=== PATIENT | male | born 1965 | race Caucasian/White ===

== ENCOUNTER → 2018-11-08 | Outpatient (CLI) | payer OTHER ==
[2018-11-08 10:40] LABS: HCT 44.7 % (39.0-53.0); HGB 14.4 gm/dL (13.0-17.5); MCHC 32.1 g/dL (31.0-37.0); MCV 90.2 fL (80.0-100.0); Mean Platelet Volume 7.3; Platelet Count 284 k/uL (150-450); RBC 4.96 m/uL (4.30-5.90); RDW 13.2 % (11.5-15.5); WBC 5.7 k/uL (3.8-10.6)
[2018-11-08 10:56] LABS: African American GFR (CKD) >90 (>60 ml/min/1.73 sqM); Anion Gap 6 mmol/L; Blood Urea Nitrogen 21 mg/dL (9-20); Carbon Dioxide 29 mmol/L (22-30); Chloride 107 mmol/L (98-107); Potassium 4.5 mmol/L (3.5-5.1); Sodium 142 mmol/L (137-145)
== END | disposition home or self-care (01) ==
LOC: LABPAT 10:12
PROVIDERS: ATTEND Internal Medicine Interventional Cardiology
DX: Z01.812 Encounter for preprocedural laboratory examination (principal); I50.22 Chronic systolic (congestive) heart failure
CPT/HCPCS: 36415; 80051; 82565; 84520; 85027

== ENCOUNTER 2018-11-13 06:12 | Day surgery (SDC) | payer OTHER ==
[2018-11-08 13:18] VITALS: BMI 35.9
[2018-11-13] MEDS ORDERED: ATORVASTATIN 80 MG TAB PO STA (06:40)
[2018-11-13] MEDS ORDERED: ALPRAZolam 0.25 MG TAB PO PRN (06:40)
[2018-11-13] MEDS ORDERED: SODIUM CHLORIDE 0.9% 1,000 ML in EMPTY BAG 1 BAG IV ONE (06:40)
[2018-11-13] MEDS ORDERED: ASPIRIN 325 MG TAB PO STA (06:40)
[2018-11-13] MEDS ORDERED: ALPRAZolam 0.5 MG TAB PO PRN (06:40)
[2018-11-13] MEDS ORDERED: NITROGLYCERIN SL TABS 0.4 MG TAB SUBLINGUAL PRN (06:40)
[2018-11-13 07:09] VITALS: TEMP 98
[2018-11-13] MEDS ORDERED: HEPARIN SODIUM 1,000 UN/ML (10ML VL) ONE (07:35)
[2018-11-13] MEDS ORDERED: MIDAZOLAM (PF) 2 MG/2 ML VIAL IV ONE (08:02)
[2018-11-13] MEDS ORDERED: LIDOCAINE 1% INJ 10MG/ML (20 ML MDV) SQ ONE (08:05)
[2018-11-13] MEDS ORDERED: VERAPAMIL SYRINGE (5 MG/10 ML) INTRAARTER ONE (08:06)
[2018-11-13] MEDS ORDERED: HEPARIN SODIUM 1,000 UN/ML (10ML VL) IV ONE (08:06)
[2018-11-13] MEDS ORDERED: IOPAMIDOL-370 125ML BTL INJ ONE (08:15)
[2018-11-13] MEDS ORDERED: RX INFO: IV CONTRAST WAS GIVEN 1 EACH MISC MISCELLANE PRN (08:22)
--- NOTE | 2018-11-13 08:28 | P.CARDCATH ---
Date of Procedure: 11/13/18 Operative Findings: CARDIAC CATHETERIZATION PERFORMING PHYSICIAN: Manuel Kessler MD, RPVI PREPROCEDURE DIAGNOSES: #1 cardiomyopathy was EF of 40% of unknown etiology #2 shortness of breath with exertion concerning for angina #3 multiple risk factors for CAD including hypertension and dyslipidemia POSTPROCEDURE DIAGNOSES: #1 normal coronary angiogram #2 normal left ventricular end-diastolic pressure PROCEDURE PERFORMED: 1. Selective right and left coronary angiogram 2. Left heart catheterization APPROACH: Right radial artery PROCEDURE DESCRIPTION: After obtaining an informed consent and explaining the procedure benefits, risks, and complications, the patient was brought to cardiac mushroom laborer. Local anesthesia was performed using lidocaine subcutaneously. The right radial artery was cannulated using Seldinger technique, the guidewire passed easily, following that we advanced a 6-[place] sheath dilator assembly, the wire and dilator were removed and sheath was flushed. Following that, 2 mg of verapamil along with 3000 unit heparin were given. Selective right and left coronary angiogram using a 6-[place] JR4 and JL 3.5 catheters. Following that we did left heart catheterization using 6-[place] pigtail catheter. The procedure was completed there was no complication. SELECTIVE CORONARY ANGIOGRAM: The right coronary artery: Is a large caliber vessel and a dominant vessel. Its angiographically normal. Distally bifurcates into PDA and PLV branches and both appeared to be pepito ographically normal. Left main: Is angiographically normal. Bifurcates into the circumflex and LAD The left circumflex: Is a large caliber vessel and nondominant vessel. The proximal circumflex gives rises into the first OM branch which seems to be angiographically normal. The mid circumflex is angiographically normal and gives rises into second OM branch which seems to be angiographically normal and the circumflex continue after that in the AV groove and seems to be normal. The left anterior descending artery: Is angiographically normal.The midportion gives rise into a large diagonal br anch which seems to be angiographically normal. HEMODYNAMICS: The LVEDP was 12-16 mmHg was mild gradient across aortic valve VENTRICULOGRAPHY: Was not performed POSTPROCEDURE MANAGEMENT: #1 medical treatment #2 follow-up with the patient
[2018-11-13] MEDS ORDERED: SODIUM CHLORIDE 0.9% 1,000 ML IV SCH (08:30)
[2018-11-13 08:33] VITALS: RESP 18
[2018-11-13 10:16] VITALS: BP 123/69; PULSE 77
== END 2018-11-13 13:26 | disposition home or self-care (01) ==
LOC: CATHCVL 06:12
PROVIDERS: ATTEND Internal Medicine Interventional Cardiology
DX: R93.1 Abnormal findings on diagnostic imaging of heart and coronary circulation (principal); R06.02 Shortness of breath; I44.7 Left bundle-branch block, unspecified; E78.5 Hyperlipidemia, unspecified; E78.00 Pure hypercholesterolemia, unspecified; Z82.49 Family history of ischemic heart disease and other diseases of the circulatory system; I42.9 Cardiomyopathy, unspecified; Z79.899 Other long term (current) drug therapy
CPT/HCPCS: 93458; C1769; C1894; J2001; J1644; Q9967; J2250

== ENCOUNTER → 2020-03-25 | Outpatient (CLI) | payer OTHER ==
--- NOTE | 2020-03-25 15:07 | CT ---
EXAMINATION TYPE: CT angio chest DATE OF EXAM: 03/25/2020 2:48 PM COMPARISON: None. HISTORY: Thoracic aneurysm. CT DLP: 1232 mGycm Automated exposure control for dose reduction was used. CONTRAST: CTA scan of the thorax is performed without and with IV Contrast, patient injected with 100ml mL of I sovue 370, aneurysm protocol. 3D reconstructed images are created on an independent workstation and reviewed.. FINDINGS: LUNGS: The lungs are predominantly clear, there is no concerning parenchymal mass or nodule identifie d. Mild to moderate linear scarring and/or atelectasis in both lower lungs is present. There is no p leural effusion or pneumothorax seen. The tracheobronchial tree is patent. MEDIASTINUM: There is satisfactory enhancement of the central pulmonary arteries which are not dilate d. Pulsation artifact level of main pulmonary artery noted. Ascending aorta measures up to 3.6 cm at aortic root coronal image 20 series 11. There is four-vessel origin from aortic arch which is normal variant. There are no greater than 1 cm hilar or mediastinal lymph nodes. No cardiomegaly or perica rdial effusion is seen. OTHER: Mild diffuse fatty infiltration of liver. Occasional colonic diverticula. Occasional splenosis . IMPRESSION: Some ectasia of the ascending aorta up to 3.6 cm the level of the root. No greater than 4 .0 cm aneurysm.
== END | disposition home or self-care (01) ==
LOC: RADCTMAIN 14:03
PROVIDERS: ATTEND Internal Medicine Interventional Cardiology
DX: I77.810 Thoracic aortic ectasia (principal)
CPT/HCPCS: 71275; Q9967

== ENCOUNTER 2021-07-29 07:28 | Inpatient (IN) | payer OTHER ==
[2021-07-29] MEDS ORDERED: NITROGLYCERIN OINT 1 INCH/GM PACKET TOPICAL STA (07:57)
--- NOTE | 2021-07-29 07:59 | ED ---
General Adult HPI - General Chief complaint: Chest Pain Stated complaint: Chest pain Time Seen by Provider: 07/29/21 07:28 Source: patient, RN notes reviewed, old records reviewed Mode of arrival: ambulatory Limitations: no limitations - History of Present Illness Initial comments: This is a 56-year-old male who presents emergency department stating that he has a past medical history significant for nonischemic cardiomyopathy. Patient states ejection fraction of 35. Patient comes in today stating last night he started having chest pain he woke up this morning continued to have some chest pain so he decided come the emergency department to be evaluated. Patient states the chest pain currently is gone. Patient denies any radiation of the pain. Patient denies any difficulty breathing shortness of breath per patient denies any recent fever chills or cough per patient denies any diaphoretic episodes. Patient denies any nausea. Patient denies any abdominal pain. Patient denies headache patient denies lightheadedness dizziness or near-syn copal episode. Patient denies any swelling to the legs or calf tenderness. - Related Data Home Medications Medication Instructions Recorded Confirmed Omeprazole [PriLOSEC] 20 mg PO AC-BRKFST 10/14/14 11/13/18 Simvastatin [Zocor] 20 mg PO HS 10/14/14 11/13/18 Citalopram Hydrobromide 20 mg PO DAILY 11/08/18 11/13/18 LORazepam [Ativan] 2 mg PO HS 11/08/18 11/13/18 lisinopriL [Prinivil] 20 mg PO DAILY 11/08/18 11/13/18 Allergies Allergy/AdvReac Type Severity Reaction Status Date / Time No Known Allergies Allergy Verified 11/08/18 13:09 Review of Systems ROS Statement: Those systems with pertinent positive or pertinent negative responses have been documented in the HPI. ROS Other: All systems not noted in ROS Statement are negative. Past Medical History Past Medical History: GERD/Reflux, Hyperlipidemia, Hypertension, Pneumonia Additional Past Medical History / Comment(s): frequent diarrhea, cardiomyopathy History of Any Multi-Drug Resistant Organisms: None Reported Additional Past Surgical History / Comment(s): surgery for testicular torsion Past Anesthesia/Blood Transfusion Reactions: Motion Sickness Past Psychological History: No Psychological Hx Reported Smoking Status: Never smoker Past Alcohol Use History: None Reported Past Drug Use History: None Reported - Past Family History Mother Family Medical History: Cancer Brother(s) Family Medical History: Cancer General Exam - General Exam Comments Initial Comments: GENERAL: Patient is well-developed and well-nourished. Patient is nontoxic and well- hydrated and is in mild distress. ENT: Neck is soft and supple. No significant lymphadenopathy is noted. Oropharynx is clear. Moist mucous membranes. Neck has full range of motion without eliciting any pain. EYES: The sclera were anicteric and conjunctiva were pink and moist. Extraocular movements were intact and pupils were equal round and reactive to light. Eyelids were unremarkable. PULMONARY: Unlabored respirations. Good breath sounds bilaterally. No audible rales rhonchi or wheezing was noted. CARDIOVASCULAR: There is a regular rate and rhythm without any murmurs gallops or rubs. ABDOMEN: Soft and nontender with normal bowel sounds. SKIN: Skin is clear with no lesions or rashes and otherwise unremarkable. NEUROLOGIC: Patient is alert and oriented x3. Cranial nerves II through XII are grossly intact. Motor and sensory are also intact. Normal speech, volume and content. Symmetrical smile. MUSCULOSKELETAL: Normal extremities with adequate strength and full range of motion. No lower extremity swelling or edema. No calf tenderness. LYMPHATICS: No significant lymphadenopathy is noted PSYCHIATRIC: Normal psychiatric evaluation. Limitations: no limitations Course Vital Signs 07/29/21 07/29/21 07:38 08:07 Temperature 98.1 F 98.5 F Pulse Rate 71 65 Respiratory 18 12 Rate Blood Pressure 125/76 117/71 O2 Sat by Pulse 98 94 L Oximetry Medical Decision Making - Medical Decision Making EKG shows sinus rhythm with a left bundle branch block at 67 bpm MD interval 180 QRSs 150 QT intervals 4:30 QTC is 445. Chest x-ray shows no acute abnormality. Patient remained chest pain free throughout his ED stay. I spoke with Dr. Linn he agreed to admit the patient and the patient wrote admitting orders I consult to cardiology. - Lab Data Result diagrams: 07/29/21 08:01 07/29/21 08:01 Lab Results 07/29/21 07/29/21 07/29/21 Range/Units 08:01 08:01 08:01 WBC 7.7 (3.8-10.6) k/uL RBC 4.65 (4.30-5.90) m/uL Hgb 14.5 (13.0-17.5) gm/dL Hct 42.8 (39.0-53.0) % MCV 92.0 (80.0-100.0) fL MCH 31.2 (25.0-35.0) pg MCHC 33.9 (31.0-37.0) g/dL RDW 13.5 (11.5-15.5) % Plt Count 256 (150-450) k/uL MPV 8.0 Neutrophils % 67 % Lymphocytes % 23 % Monocytes % 6 % Eosinophils % 3 % Basophils % 1 % Neutrophils # 5.1 (1.3-7.7) k/uL Lymphocytes # 1.8 (1.0-4.8) k/uL Monocytes # 0.4 (0-1.0) k/uL Eosinophils # 0.2 (0-0.7) k/uL Basophils # 0.0 (0-0.2) k/uL PT 10.0 (9.0-12.0) sec INR 0.9 (<1.2) APTT 24.3 (22.0-30.0) sec Sodium 139 (137-145) mmol/L Potassium 3.9 (3.5-5.1) mmol/L Chloride 108 H (98-107) mmol/L Carbon Dioxide 27 (22-30) mmol/L Anion Gap 4 mmol/L BUN 19 (9-20) mg/dL Creatinine 0.94 (0.66-1.25) mg/dL Est GFR (CKD-EPI)AfAm >90 (>60 ml/min/1.73 sqM) Est GFR (CKD-EPI)NonAf >90 (>60 ml/min/1.73 sqM) Glucose 108 H (74-99) mg/dL Calcium 8.7 (8.4-10.2) mg/dL Magnesium 2.0 (1.6-2.3) mg/dL Total Bilirubin 0.5 (0.2-1.3) mg/dL AST 18 (17-59) U/L ALT 17 (4-49) U/L Alkaline Phosphatase 60 (38-126) U/L Troponin I (0.000-0.034) ng/mL Total Protein 6.9 (6.3-8.2) g/dL Albumin 3.8 (3.5-5.0) g/dL 03/03/22 Range/Units 08:01 WBC (3.8-10.6) k/uL RBC (4.30-5.90) m/uL Hgb (13.0-17.5) gm/dL Hct (39.0-53.0) % MCV (80.0-100.0) fL MCH (25.0-35.0) pg MCHC (31.0-37.0) g/dL RDW (11.5-15.5) % Plt Count (150-450) k/uL MPV Neutrophils % % Lymphocytes % % Monocytes % % Eosinophils % % Basophils % % Neutrophils # (1.3-7.7) k/uL Lymphocytes # (1.0-4.8) k/uL Monocytes # (0-1.0) k/uL Eosinophils # (0-0.7) k/uL Basophils # (0-0.2) k/uL PT (9.0-12.0) sec INR (<1.2) APTT (22.0-30.0) sec Sodium (137-145) mmol/L Potassium (3.5-5.1) mmol/L Chloride (98-107) mmol/L Carbon Dioxide (22-30) mmol/L Anion Gap mmol/L BUN (9-20) mg/dL Creatinine (0.66-1.25) mg/dL Est GFR (CKD-EPI)AfAm (>60 ml/min/1.73 sqM) Est GFR (CKD-EPI)NonAf (>60 ml/min/1.73 sqM) Glucose (74-99) mg/dL Calcium (8.4-10.2) mg/dL Magnesium (1.6-2.3) mg/dL Total Bilirubin (0.2-1.3) mg/dL AST (17-59) U/L ALT (4-49) U/L Alkaline Phosphatase (38-126) U/L Troponin I <0.012 (0.000-0.034) ng/mL Total Protein (6.3-8.2) g/dL Albumin (3.5-5.0) g/dL Disposition Clinical Impression: Unstable angina pectoris Disposition: ADMITTED IP TO THIS [facility] Referrals: Mari Jamil MD [Primary Care Provider] - 1-2 days Time of Disposition: 09:50
[2021-07-29 08:17] LABS: Basophils % (A) 1 %; Eosinophils # (A) 0.2 k/uL (0-0.7); Eosinophils % (A) 3 %; HCT 42.8 % (39.0-53.0); HGB 14.5 gm/dL (13.0-17.5); Lymphocytes # (A) 1.8 k/uL (1.0-4.8); Lymphocytes % (A) 23 %; MCH 31.2 pg (25.0-35.0); MCHC 33.9 g/dL (31.0-37.0); Monocytes # (A) 0.4 k/uL (0-1.0); Monocytes % (A) 6 %; Neutrophils # (A) 5.1 k/uL (1.3-7.7); Neutrophils % (A) 67 %; Platelet Count 256 k/uL (150-450); RBC 4.65 m/uL (4.30-5.90); RDW 13.5 % (11.5-15.5); WBC 7.7 k/uL (3.8-10.6)
[2021-07-29 08:27] LABS: INR 0.9 (<1.2); Partial Thromboplastin Time 24.3 sec (22.0-30.0)
[2021-07-29 08:33] LABS: ALT 17 U/L (4-49); AST 18 U/L (17-59); African American GFR (CKD) >90 (>60 ml/min/1.73 sqM); Albumin 3.8 g/dL (3.5-5.0); Alkaline Phosphatase 60 U/L (38-126); Anion Gap 4 mmol/L; Blood Urea Nitrogen 19 mg/dL (9-20); Calcium 8.7 mg/dL (8.4-10.2); Carbon Dioxide 27 mmol/L (22-30); Chloride 108 mmol/L (98-107); Glucose 108 mg/dL (74-99); Non-African American GFR(CKD) >90 (>60 ml/min/1.73 sqM); Potassium 3.9 mmol/L (3.5-5.1); Sodium 139 mmol/L (137-145); Total Bilirubin 0.5 mg/dL (0.2-1.3); Total Protein 6.9 g/dL (6.3-8.2)
--- NOTE | 2021-07-29 09:16 | XR ---
EXAMINATION TYPE: XR chest 2V DATE OF EXAM: 07/29/2021 COMPARISON: None INDICATION: Chest pain TECHNIQUE: Frontal and lateral views of the chest are obtained. FINDINGS: The heart size is normal. The pulmonary vasculature is normal. There is some mild streak atelectasis at the right base. Correlate for atelectasis. Mild nonspecific infiltrate at the left base is present. Correlate for subsegmental atelectasis.. IMPRESSION: 1. Mild bibasilar infiltrates suggestive for atelectasis. Follow-up can be performed.
[2021-07-29] MEDS ORDERED: NITROGLYCERIN SL TABS 0.4 MG TAB SUBLINGUAL PRN (09:50)
--- NOTE | 2021-07-29 11:21 | P.CRDCN ---
History of Present Illness Consult date: 07/29/21 History of present illness: This is a 56-year-old gentleman with history of known left bundle branch block and also nonischemic cardiomyopathy with an ejection fraction about 40% who is being followed by Dr. Weller, comes here with complaints of chest pain. Around 10:00 last night while watching TV, patient started feeling some tight feeling across the chest. Apparently lasted about 2 hours. Not associated with any nausea, vomiting, sweating or shortness of breath, no radiation. Patient should've a couple of aspirins with some relief. Patient however continued to have chest pain and came to the emergency room around 7:00 this morning. Still has some mild discomfort. He claims that when he tried to walk around, the tightness got worse. He EKG continued to show left bundle-branch block. Foster troponin values normal. No arrhythmias are detected. Chest x-ray within normal limits. D-dimer is not available at this time. Chest pain with atypical featu res. Patient had a normal cardiac catheterization 2019. We'll continue to monitor his cardiac enzymes. We'll get an echocardiogram. Depending upon the clinical course and findings on the above test, we'll make consider is a Lexiscan stress test or cardiac catheterization. Meanwhile continue with current medical therapy along with nitrates and aspirin and lipid-lowering agent Past Medical History Past Medical History: GERD/Reflux, Hyperlipidemia, Hypertension, Pneumonia Additional Past Medical History / Comment(s): Nonischemic cardiomyopathy, Atach, small hiatal hernia. History of Any Multi-Drug Resistant Organisms: None Reported Past Surgical History: Heart Catheterization Additional Past Surgical History / Comment(s): 2019 cardiac cath, surgery for testicular torsion, EGD, colonoscopy Past Anesthesia/Blood Transfusion Reactions: No Reported Reaction Smoking Status: Former smoker - Past Family History Father Family Medical History: Coronary Artery Disease (CAD) Additional Family Medical History / Comment(s): Father is living. He had CABG Mother Family Medical History: AFIB, Cancer, Coronary Artery Disease (CAD) Additional Family Medical History / Comment(s): Mother is living. She had breast cancer. She had a watchman's procedure then cardiac valve surgery. Brother(s) Family Medical History: Cancer Additional Family Medical History / Comment(s): Geoblastoma's in brain/. Medications and Allergies Home Medications Medication Instructions Recorded Confirmed Type Omeprazole [PriLOSEC] 20 mg PO HS 10/14/14 07/29/21 History Calcium Polycarbophil [Fibercon] 625 mg PO TID 07/29/21 07/29/21 History Citalopram Hydrobromide 40 mg PO HS 07/29/21 07/29/21 History LORazepam [Ativan] 2 mg PO HS 07/29/21 07/29/21 History Metoprolol Succinate (ER) [Toprol 50 mg PO HS 07/29/21 07/29/21 History Xl] Multivitamins, Thera [Multivitamin 1 tab PO HS 07/29/21 07/29/21 History (formulary)] Sacubitril/Valsartan [Entresto 24 1 tab PO BID 07/29/21 07/29/21 History mg-26 mg Tablet] Simvastatin [Zocor] 40 mg PO HS 07/29/21 07/29/21 History Spironolactone [Aldactone] 25 mg PO DAILY 07/29/21 07/29/21 History Allergies Allergy/AdvReac Type Severity Reaction Status Date / Time No Known Allergies Allergy Verified 07/29/21 10:22 Physical Exam Vitals: Vital Signs Temp Pulse Resp BP Pulse Ox 07/29/21 08:07 98.5 F 65 12 117/71 94 L 07/29/21 07:38 98.1 F 71 18 125/76 98 Intake and Output 07/28/21 07/29/21 07/29/21 22:59 06:59 14:59 Other: Weight 122.47 kg GENERAL EXAM: Patient is alert and oriented and doesn't appear to be in any acute distress HEENT: Normocephalic. Normal reaction of pupils, equal size, normal range of extraocular motion. No erythema or exudates in the throat. NECK: No masses, no nuchal rigidity. CHEST: No chest wall deformity. LUNGS: Equal air entry with no crackles or wheeze. HEART: S1 and S2 normal with no audible mumurs or gallops. Regular rhythm, femorals equal on both sides.. ABDOMEN: No hepatosplenomegaly, normal bowel sounds, no guarding or rigidity. SKIN: No rashes CENTRAL NERVOUS SYSTEM: No focal deficits. EXTREMITIES: No cyanosis, clubbing or edema. Results 07/29/21 08:01 07/29/21 08:01 Cardiac Enzymes 07/29/21 07/29/21 Range/Units 08:01 08:01 AST 18 (17-59) U/L Troponin I <0.012 (0.000-0.034) ng/mL Coagulation 07/29/21 Range/Units 08:01 PT 10.0 (9.0-12.0) sec APTT 24.3 (22.0-30.0) sec CBC 07/29/21 Range/Units 08:01 WBC 7.7 (3.8-10.6) k/uL RBC 4.65 (4.30-5.90) m/uL Hgb 14.5 (13.0-17.5) gm/dL Hct 42.8 (39.0-53.0) % Plt Count 256 (150-450) k/uL Comprehensive Metabolic Panel 07/29/21 Range/Units 08:01 Sodium 139 (137-145) mmol/L Potassium 3.9 (3.5-5.1) mmol/L Chloride 108 H (98-107) mmol/L Carbon Dioxide 27 (22-30) mmol/L BUN 19 (9-20) mg/dL Creatinine 0.94 (0.66-1.25) mg/dL Glucose 108 H (74-99) mg/dL Calcium 8.7 (8.4-10.2) mg/dL AST 18 (17-59) U/L ALT 17 (4-49) U/L Alkaline Phosphatase 60 (38-126) U/L Total Protein 6.9 (6.3-8.2) g/dL Albumin 3.8 (3.5-5.0) g/dL Current Medications Generic Name Dose Route Start Last Admin Trade Name Freq PRN Reason Stop Dose Admin Aspirin 325 mg 07/30/21 09:00 Aspirin 325 Mg Tab PO DAILY [facility] Atorvastatin Calcium 20 mg 07/29/21 21:00 Atorvastatin 20 Mg Tab PO HS [facility] Calcium Polycarbophil 625 mg 07/29/21 16:00 Calcium Polycarbophil 625 Mg Tab PO TID [facility] Citalopram Hydrobromide 40 mg 07/29/21 21:00 Citalopram Hydrobromide 20 Mg Tab PO HS [facility] Lorazepam 2 mg 07/29/21 21:00 Lorazepam 1 Mg Tab PO HS [facility] Metoprolol Succinate 50 mg 07/29/21 21:00 Metoprolol Succinate (Er) 50 Mg Tab.Er.24h PO HS [facility] Multivitamins 1 each 07/29/21 21:00 Multivitamins, Thera 1 Each Tab PO HS [facility] Nitroglycerin 0.4 mg 07/29/21 09:50 Nitroglycerin Sl Tabs 0.4 Mg Tab SUBLINGUAL Q5M PRN Chest Pain Nitroglycerin 1 inch 07/29/21 12:00 Nitroglycerin Oint 1 Inch/Gm Packet TOPICAL Q6HR [facility] Pantoprazole Sodium 40 mg 07/29/21 21:00 Pantoprazole 40 Mg Tablet PO HS [facility] Sacubitril/Valsartan 1 each 07/29/21 21:00 Sacubitril/Valsartan 24 Mg-26 Mg Tablet PO BID [facility] Spironolactone 25 mg 07/30/21 09:00 Spironolactone 25 Mg Tab PO DAILY [facility] Intake and Output 07/28/21 07/29/21 07/29/21 22:59 06:59 14:59 Other: Weight 122.47 kg Patient Weight 07/30/21 06:59 Weight 122.47 kg 07/29/21 08:01 07/29/21 08:01 EKG Interpretations (text) Sinus rhythm with left bundle-branch block Assessment and Plan (1) Chest pain Current Visit: Yes Status: Acute Code(s): R07.9 - CHEST PAIN, UNSPECIFIED SNOMED Code(s): 88505351 (2) Left bundle branch block Current Visit: Yes Status: Acute Code(s): I44.7 - LEFT BUNDLE-BRANCH BLOCK, UNSPECIFIED SNOMED Code(s): 24852252 (3) Nonischemic cardiomyopathy Current Visit: Yes Status: Acute Code(s): I42.8 - OTHER CARDIOMYOPATHIES SNOMED Code(s): 56030422 Plan: Continue current medical therapy along with nitrates and aspirin. Get an echocardiogram. Follow cardiac enzymes studies. Depending upon the clinical course and findings on the boat as, may consider either Lexiscan stress test or cardiac catheterization for definitive diagnosis. Keep patient nothing by mouth after midnight
[2021-07-29] MEDS: NITROGLYCERIN OINT 1 INCH/GM PACKET TOPICAL SCH ×2 (12:46→18:11)
--- NOTE | 2021-07-29 14:30 | P.HPIM ---
<Kun Carbone - Last Filed: 07/29/21 14:22> History of Present Illness H&P Date: 07/29/21 History of Presenting Illness: Patient is a very pleasant 56-year-old male with a past medical history of nonis chemic cardiomyopathy with previously reported EF of 40%, atrial tachycardia, hypertension, hyperlipidemia, and GERD. Patient presented to the emergency department secondary to reports of chest pain. Patient states chest pain began yesterday evening and described as a tightening and squeezing sensation to midsternal chest. He reports this pain came on while he was relaxing and watching television. He reports initially this pain was accompanied by diaphoresis and just feeling unwell. He denies any radiation of this pain and denied having any headache, lightheadedness, dizziness, palpitations, shortness of breath, nausea, or experiencing any numbness/tingling/weakness in his extremities. He reports the pain seemed to improve slightly after about 2 hours and he went to bed. Patient reports upon awakening this morning the tightening/squeezing sensation was still present in his midsternal chest so he came to the emergency department for evaluation. Patient currently reports pain has subsided since arrival to the emergency department, but states pain did return upon walking to the restroom and subsided shortly after returning to bed. EKG completed showing normal sinus rhythm at 67 bpm with a left bundle branch block, no previous EKGs available for comparison. Chest x-ray revealing mild bibasilar infiltrate suggestive of atelectasis. Labs obtained with CBC unremarkable, coags unremarkable, CMP unremarkable magnesium normal findings and troponin negative at less than 0.012. Patient admitted under our services with consultation to cardiology. Review of systems: Pertinent positives and negatives as discussed in HPI, a complete review of systems was performed and all other systems are negative. Physical exam: Vital signs reviewed and stable. General: Nontoxic, no distress and appears stated age. Derm: Skin warm and dry, normal coloration for ethnicity. Head: Atraumatic, normocephalic and symmetric. Eyes: EOMs intact, no lid lag, and anicteric sclera Mouth: no lip lesions, mucus membranes moist Cardiovascular: regular rate and rhythm with normal S1S2, no murmur, positive posterior tibial pulses bilaterally, and cap refill < 2 seconds. Lungs: Respirations even, regular, and unlabored on room air. Lungs CTA bilaterally, no rhonchi, no rales, no wheezing, and no accessory muscle usage. Abdominal: soft, nontender to palpation, no guarding, no appreciable organomegaly Ext: ROM intact. No gross muscle atrophy, no edema, no contractures Neuro: Speech clear, face symmetrical and CN II-XII grossly intact with no noted focal neuro deficits Psych: Alert and oriented to person, place, time, and situation. Appropriate and pleasant affect. Assessment and Plan of Care: Chest pain, rule out acute coronary syndrome Nonischemic cardiomyopathy with previously known EF of 40% History of atrial tachycardia Hypertension Hyperlipidemia -Cardiology consult -Telemetry monitoring -Trend troponins -Echocardiogram -Cardiac diet, NPO after midnight for possible stress test pending cardiology evaluation -Continue daily Aspirin, atorvastatin, and metoprolol, Entresto, and Aldactone -Lipid profile and Hgb A1c with a.m. labs. The patient is admitted with an anticipated less than 2 midnight stay for evaluation of chest pain. CODE STATUS: Full code DVT prophylaxis: Heparin Discussed with: Patient, RN, and patient's Anticipated discharge date: 1-[address]: Home A total of 45 minutes was spent on the care of this complex patient more than 50% of the time was spent in counseling and care coordination. Past Medical History Past Medical History: GERD/Reflux, Hyperlipidemia, Hypertension, Pneumonia Additional Past Medical History / Comment(s): frequent diarrhea, cardiomyopathy History of Any Multi-Drug Resistant Organisms: None Reported Additional Past Surgical History / Comment(s): surgery for testicular torsion Past Anesthesia/Blood Transfusion Reactions: Motion Sickness Past Psychological History: No Psychological Hx Reported Smoking Status: Never smoker Past Alcohol Use History: None Reported Past Drug Use History: None Reported - Past Family History Mother Family Medical History: Cancer Brother(s) Family Medical History: Cancer Father Family Medical History: Coronary Artery Disease (CAD) Additional Family Medical History / Comment(s): Father is living. He had CABG Medications and Allergies Home Medications Medication Instructions Recorded Confirmed Type Omeprazole [PriLOSEC] 20 mg PO HS 10/14/14 07/29/21 History Calcium Polycarbophil [Fibercon] 625 mg PO TID 07/29/21 07/29/21 History Citalopram Hydrobromide 40 mg PO HS 07/29/21 07/29/21 History LORazepam [Ativan] 2 mg PO HS 07/29/21 07/29/21 History Metoprolol Succinate (ER) [Toprol 50 mg PO HS 07/29/21 07/29/21 History Xl] Multivitamins, Thera [Multivitamin 1 tab PO HS 07/29/21 07/29/21 History (formulary)] Sacubitril/Valsartan [Entresto 24 1 tab PO BID 07/29/21 07/29/21 History mg-26 mg Tablet] Simvastatin [Zocor] 40 mg PO HS 07/29/21 07/29/21 History Spironolactone [Aldactone] 25 mg PO DAILY 07/29/21 07/29/21 History Allergies Allergy/AdvReac Type Severity Reaction Status Date / Time No Known Allergies Allergy Verified 07/29/21 10:22 Physical Exam Vitals: Vital Signs Temp Pulse Resp BP Pulse Ox 07/29/21 08:07 98.5 F 65 12 117/71 94 L 07/29/21 07:38 98.1 F 71 18 125/76 98 Intake and Output 07/28/21 07/29/21 07/29/21 22:59 06:59 14:59 Other: Weight 122.47 kg Results CBC & Chem 7: 07/29/21 08:01 07/29/21 08:01 Labs: Abnormal Lab Results - Last 24 Hours (Table) 07/29/21 Range/Units 08:01 Chloride 108 H (98-107) mmol/L Glucose 108 H (74-99) mg/dL <German Perez - Last Filed: 07/29/21 17:19> History of Present Illness I reviewed the documentation as provided by the LAKESHA above, who is the original author of this note. I agree with the documented assessment and plan, with the following changes: None Physical Exam Osteopathic Statement: *. No significant issues noted on an osteopathic structural exam other than those noted in the History and Physical/Consult. Vitals: Vital Signs Temp Pulse Pulse Resp BP BP Pulse Ox 07/29/21 14:50 98.3 F 80 16 117/71 94 L 07/29/21 11:55 98.5 F 67 16 117/72 98 07/29/21 08:07 98.5 F 65 12 117/71 94 L 07/29/21 07:38 98.1 F 71 18 125/76 98 Intake and Output 07/29/21 07/29/21 07/29/21 06:59 14:59 22:59 Other: # Voids 1 Weight 122.47 kg Results CBC & Chem 7: 07/29/21 08:01 07/29/21 08:01 Labs: Abnormal Lab Results - Last 24 Hours (Table) 07/29/21 Range/Units 08:01 Chloride 108 H (98-107) mmol/L Glucose 108 H (74-99) mg/dL
[2021-07-29] MEDS: ACETAMINOPHEN TAB 325 MG TAB PO PRN (16:38)
[2021-07-29] MEDS: HEPARIN SODIUM,PORCINE/PF 5,000 UNIT/0.5 ML SYRINGE SQ SCH ×2 (16:40→21:10)
[2021-07-29] MEDS: SACUBITRIL/VALSARTAN 24 MG-26 MG TABLET PO SCH (21:10)
[2021-07-29] MEDS: LORazepam 1 MG TAB PO SCH (21:11)
[2021-07-29] MEDS: MULTIVITAMINS, THERA 1 EACH TAB PO SCH (21:11)
[2021-07-29] MEDS: PANTOPRAZOLE 40 MG TABLET PO SCH (21:11)
[2021-07-29] MEDS: ATORVASTATIN 20 MG TAB PO SCH (21:11)
[2021-07-29] MEDS: METOPROLOL SUCCINATE (ER) 50 MG TAB.ER.24H PO SCH (21:11)
[2021-07-29] MEDS: CITALOPRAM HYDROBROMIDE 20 MG TAB PO SCH (21:11)
[2021-07-30] MEDS: NITROGLYCERIN OINT 1 INCH/GM PACKET TOPICAL SCH ×5 (05:24→20:29)
[2021-07-30] MEDS ORDERED: HEPARIN SODIUM,PORCINE 2,500 UNIT in SODIUM CHLORIDE 0.9% 250 ML IRRIGATION PRN (07:00)
[2021-07-30] MEDS ORDERED: HEPARIN SODIUM,PORCINE 10,000 UNIT in SODIUM CHLORIDE 0.9% 1,000 ML IRRIGATION PRN (07:00)
[2021-07-30] MEDS ORDERED: CAFFEINE CITRATE 60 MG/3 ML VIAL IV PRN (08:58)
[2021-07-30] MEDS ORDERED: REGADENOSON 0.4 MG/5 ML SYRINGE IV PRN (08:58)
[2021-07-30] MEDS ORDERED: AMINOPHYLLINE 500 MG/20 ML VIAL IV PRN (08:58)
[2021-07-30] MEDS ORDERED: ASPIRIN 325 MG TAB PO SCH (09:00)
--- NOTE | 2021-07-30 09:00 | ECHOF ---
Referral Reason:chest pain, hx of nonischemic cardiomyopathy MEASUREMENTS -------- HEIGHT: 180.3 cm WEIGHT: 122.5 kg BP: 117/71 RVIDd: 3.0 cm (< 3.3) IVSd: 1.1 cm (0.6 - 1.1) LVIDd: 4.3 cm (3.9 - 5.3) LVPWd: 1.1 cm (0.6 - 1.1) IVSs: 1.1 cm LVIDs: 3.6 cm LVPWs: 1.7 cm LA Diam: 3.2 cm (2.7 - 3.8) LAESV Index (A-L): 15.54 ml/m Ao Diam: 3.5 cm (2.0 - 3.7) AV Cusp: 2.5 cm (1.5 - 2.6) MV EXCURSION: 18.395 mm (> 18.000) MV EF SLOPE: 89 mm/s (70 - 150) EPSS: 0.8 cm MV E Augusto: 0.78 m/s MV DecT: 249 ms MV A Augusto: 0.82 m/s MV E/A Ratio: 0.95 RAP: 5.00 mmHg RVSP: 26.73 mmHg FINDINGS -------- Sinus rhythm. This was a technically adequate study. The left ventricular size is normal. There is borderline concentric left ventricular hypertrophy. Overall left ventricular systolic function is normal with, an EF between 55 - 60 %. Septal wall mo tion is delayed, and consistent with conduction delay/bundle branch block. The right ventricle is normal in size. Normal LA size by volume 22+/-6 ml/m2. The right atrium is normal in size. Interatrial and interventricular septum intact. The aortic valve is trileaflet, and appears structurally normal. No aortic stenosis or regurgitation. There is trace to mild mitral regurgitation. Mild tricuspid regurgitation present. Right ventricular systolic pressure is normal at < 35 mmHg. Trace/mild (physiologic) pulmonic regurgitation. The aortic root size is normal. Normal inferior vena cava with normal inspiratory collapse consistent with estimated right atrial pre ssure of 5 mmHg. There is no pericardial effusion. CONCLUSIONS -------- 1. The left ventricular size is normal. 2. There is borderline concentric left ventricular hypertrophy. 3. Overall left ventricular systolic function is normal with, an EF between 55 - 60 %. 4. Septal wall motion is delayed, and consistent with conduction delay/bundle branch block. 5. There is trace to mild mitral regurgitation. 6. Mild tricuspid regurgitation present. 7. Trace/mild (physiologic) pulmonic regurgitation. 8. There is no pericardial effusion. [employer]: Jenny Tilley RDCS
[2021-07-30] MEDS: ACETAMINOPHEN TAB 325 MG TAB PO PRN ×2 (09:11)
[2021-07-30] MEDS: ASPIRIN 81 MG PO SCH ×2 (09:13→13:10)
[2021-07-30] MEDS: SACUBITRIL/VALSARTAN 24 MG-26 MG TABLET PO SCH ×2 (09:13→20:28)
[2021-07-30] MEDS: HEPARIN SODIUM,PORCINE/PF 5,000 UNIT/0.5 ML SYRINGE SQ SCH ×3 (09:14→20:29)
[2021-07-30] MEDS: SPIRONOLACTONE 25 MG TAB PO SCH (09:14)
--- NOTE | 2021-07-30 10:11 | P.PN ---
Subjective This is a pleasant 56-year-old male past medical history significant for nonischemic cardiomyopathy with improved EF, hypertension, dyslipidemia, obe sity, chronic heart failure with reduced ejection fraction, paroxysmal atrial tachycardia. He follows in the office with Dr. Kessler. We have been asked to see in consultation for chest pain. Patient presents to the emergency department with chest pain. EKG revealed sinus rhythm, left bundle branch block, heart rate 67, troponins were negative 3. Patient denies any further chest pain. He denies any shortness of breath, palpitations, lightheadedness or dizziness. Telemetry reviewed patient is in sinus mechanism, heart rate in the 60s70s. His vital signs are stable DIAGNOSTICS: Cardiac catheterization in 2019 revealed normal coronary arteries Echocardiogram 05/2020 revealed an EF of 40%, mild TR, mild MR Echocardiogram this admission revealed an EF of 5560 percent, septal wall motion is delayed, consistent with conduction delay/bundle branch block, trace to mild mitral regurgitation, mild tricuspid regurgitation PHYSICAL EXAMINATION Vitals reviewed CONSTITUTIONAL: No apparent distress. HEENT: Neck supple No JVD. CHEST EXAMINATION: Lungs are clear to auscultation. No chest wall tenderness is noted on palpation or with deep breathing. HEART EXAMINATION: Regular rate and rhythm. S1, S2 heard. No murmurs, gallops or rub. ABDOMEN: Soft, nontender. Positive bowel sounds. EXTREMITIES: 2+ peripheral pulses, no lower extremity edema and no calf tenderness. NEUROLOGIC EXAMINATION: Patient is awake, alert and oriented x3. ASSESSMENT Chest pain acute coronary syndrome has been ruled out History of Nonischemic cardiomyopathy with improved EF Hypertension Dyslipidemia Obesity Chronic heart failure with reduced ejection fraction History of paroxysmal atrial tachycardia PLAN Perform Lexiscan stress test to assess for stress induced cardiac ischemia. If abnormal will consider coronary angiography. The stress test is negative okay to discharge from cardiology perspective. Patient may follow-up in the office with Dr. Kessler Nurse practitioner note has been reviewed by physician. Signing provider agrees with the documented findings, assessment, and plan of care. Objective - Vital Signs Vital signs: Vital Signs Temp 98.5 F 07/29/21 11:55 Pulse 67 07/29/21 11:55 Resp 16 07/29/21 11:55 BP 117/72 07/29/21 11:55 Pulse Ox 98 07/29/21 11:55 Intake & Output 07/28/21 07/29/2122 18:59 06:59 18:59 Weight 122.47 kg - Labs CBC & Chem 7: 07/29/21 08:01 07/29/21 08:01 Labs: Abnormal Lab Results - Last 24 Hours (Table) 07/29/21 Range/Units 08:01 Chloride 108 H (98-107) mmol/L Glucose 108 H (74-99) mg/dL
--- NOTE | 2021-07-30 11:05 | P.STRESS ---
- Stress Test Note Stress Test Results/Findings: Exam Performed: NM stress lexiscan cardiolite Exam Date: 07/30/21 Reason for Exam: CP Height: 5 ft 11 in Weight: 122.47 kg Protocol: LEXISCAN CARDIOLITE Stage: NA Duration of Exercise: NA Resting Heart Rate: 73 Resting Blood Pressure: 131/65 Maximum Achieved Heart Rate: 94 Maximum Achieved Blood Pressure: 131/65 85% PMHR: 139 100% PMHR: 164 METS: NA Technologist Comment: Stress Test Results/Findings: This is a 57-year-old gentleman with history of hypertension, hypercholesteremia, and family history of ischemic heart disease was admitted to the hospital with complaints of chest pain. His cardiac enzymes are negative. EKG showed left bundle-branch block pattern. Stress data: Baseline EKG showed sinus rhythm with left bundle-branch block pattern. Blood pressure at rest is 130/65, pulse rate of 73. History and was of Lexiscan was infused. EKGs taken during or after infusion did not reveal any significant changes from baseline. Final impression: #1. Nondiagnostic legs scan stress test #2. Report on the nuclear images to be given by the radiologist.
[2021-07-30 11:08] LABS: ALT 14 U/L (10-49); AST 9 U/L (14-35); African American GFR (CKD) 97.1 (60.0-200.0); Albumin/Globulin Ratio 1.67 (1.60-3.17); Alkaline Phosphatase 66 U/L (41-126); Blood Urea Nitrogen 15.3 mg/dL (9.0-27.0); Calcium 9.3 mg/dL (8.7-10.3); Carbon Dioxide 23.8 mmol/L (20.0-27.5); Chloride 102 mmol/L (96-109); Chol/HDL Ratio 3.73 Ratio; Globulin 2.4 g/dL (1.6-3.3); Glucose 117 mg/dL (70-110); LDL Cholesterol,Calculated 110.8 mg/dL (0.0-131.0); Non-African American GFR(CKD) 83.8 (60.0-200.0); Potassium 4.4 mmol/L (3.5-5.5); Sodium 138 mmol/L (135-145); Total Protein 6.4 g/dL (6.2-8.2); VLDL Calculation 14.38 mg/dL (5.00-40.00)
[2021-07-30 11:16] LABS: HGB 12.8 g/dL (13.0-17.0); MCH 30.2 pg (27.0-32.0); MCHC 32.8 g/dL (32.0-37.0); Mean Platelet Volume 11.2 fL (9.5-12.2); NRBC Per 100 WBC 0 /100 WBCS (0.0-0.0); Platelet Count 253 X 10*3/uL (140-440); RBC 4.24 X 10*6/uL (4.40-5.60); RDW 13.3 % (11.5-14.5); WBC 9.16 X 10*3/uL (4.50-10.00)
--- NOTE | 2021-07-30 11:38 | NM ---
EXAMINATION TYPE: NM stress lexiscan cardiolite DATE OF EXAM: 07/30/2021 COMPARISON: NONE HISTORY: Chest pain TECHNIQUE: After the intravenous administration of 9.68 mCi Tc 99m Sestamibi - Cardiolite resting SP ECT images acquired 55 minutes post injection. The patient received 0.4mg Lexiscan, 24.3 mCi Tc 99m Sestamibi - Stress images obtained [address] injection FINDINGS: Review of stress and rest SPECT images demonstrates decreased perfusion on stress images involving th e inferior cardiac apex as well as the lateral wall. Correlate for stress-induced ischemia. Gated kenneth lysis shows normal wall motion with an estimated left ventricular ejection fraction of 53 %. IMPRESSION: Correlate for stress-induced ischemia as noted above.
[2021-07-30] MEDS ORDERED: SODIUM CHLORIDE 0.9% 1,000 ML in EMPTY BAG 1 BAG IV ONE (12:22)
[2021-07-30] MEDS ORDERED: SODIUM CHLORIDE 0.9% 1,000 ML IV ONE (13:11)
--- NOTE | 2021-07-30 13:44 | P.PN ---
<Kun Carbone - Last Filed: 07/30/21 13:36> Subjective Progress Note Date: 07/30/21 History of Presenting Illness: Patient is a very pleasant 56-year-old male with a past medical history of nonischemic cardiomyopathy with previously reported EF of 40%, atrial tachycardia, hypertension, hyperlipidemia, and GERD. Patient presented to the emergency department secondary to reports of chest pain. Patient states chest pain began yesterday evening and described as a tightening and squeezing sensation to midsternal chest. He reports this pain came on while he was relaxing and watching television. He reports initially this pain was accompanied by diaphoresis and just feeling unwell. He denies any radiation of this pain and denied having any headache, lightheadedness, dizziness, palpitations, shortness of breath, nausea, or experiencing any numbness/tingling/weakness in his extremities. He reports the pain seemed to improve slightly after about 2 hours and he went to bed. Patient reports upon awakening this morning the tightening/squeezing sensation was still present in his midsternal chest so he came to the emergency department for evaluation. Patient currently reports pain has subsided since arrival to the emergency department, but states pain did return upon walking to the restroom and subsided shortly after returning to bed. EKG completed showing normal sinus rhythm at 67 bpm with a left bundle branch block, no previous EKGs available for comparison. Chest x-ray revealing mild bibasilar infiltrate suggestive of atelectasis. Labs obtained with CBC unremarkable, coags unremarkable, CMP unremarkable, magnesium normal findings and troponin negative at less than 0.012. Patient admitted under our services with consultation to cardiology. Physical exam: Patient seen and fully evaluated at the bedside. He reports continued persistent discomfort to midsternal chest, but does report that it has improved when compared to previous pain felt upon arrival. Patient denies having any headache, lightheadedness, dizziness, palpitations, shortness of breath, nausea, or experiencing any numbness/tingling/weakness in his extremities. Troponins were trended throughout the night and remained negative. Cardiology to complete Lexiscan stress test this morning. Vital signs reviewed and stable. General: Nontoxic, no distress and appears stated age. Derm: Skin warm and dry, normal coloration for ethnicity. Head: Atraumatic, normocephalic and symmetric. Eyes: EOMs intact, no lid lag, and anicteric sclera Mouth: no lip lesions, mucus membranes moist Cardiovascular: regular rate and rhythm with normal S1S2, no murmur, positive posterior tibial pulses bilaterally, and cap refill < 2 seconds. Lungs: Respirations even, regular, and unlabored on room air. Lungs CTA bilaterally, no rhonchi, no rales, no wheezing, and no accessory muscle usage. Abdominal: soft, nontender to palpation, no guarding, no appreciable organomegaly Ext: ROM intact. No gross muscle atrophy, no edema, no contractures Neuro: Speech clear, face symmetrical and CN II-XII grossly intact with no noted focal neuro deficits Psych: Alert and oriented to person, place, time, and situation. Appropriate and pleasant affect. Assessment and Plan of Care: Chest pain, rule out acute coronary syndrome Nonischemic cardiomyopathy with previously known EF of 40%, repeat echocardiogram showing ejection fraction improved to 55-60% History of atrial tachycardia Left bundle-branch block (previously known per patient, no previous EKGs available for comparison at this time) Hypertension Hyperlipidemia -Cardiology following, taking patient for Lexiscan stress test this morning. -Telemetry monitoring -Troponins negative -Echocardiogram revealed improvement of the EF up to 55-60% with septal wall motion Lainey meant and consistent with conduction delay/bundle branch block. -Continue daily Aspirin, atorvastatin, and metoprolol, Entresto, and Aldactone -Lipid profile unremarkable. CODE STATUS: Full code DVT prophylaxis: Heparin Discussed with: Patient, RN, and patient's Anticipated discharge date: 1-[address]: Home A total of 45 minutes was spent on the care of this complex patient more than 50% of the time was spent in counseling and care coordination. Objective - Vital Signs Vital signs: Vital Signs Temp 98.2 F 07/30/21 07:52 Pulse 76 07/30/21 09:09 Resp 18 07/30/21 07:52 BP 115/75 07/30/21 09:09 Pulse Ox 92 L 07/30/21 07:00 Intake & Output 07/29/21 07/30/21 07/30/21 18:59 06:59 18:59 Weight 122.47 kg Other: # Voids 1 1 # Bowel Movements 1 - Labs CBC & Chem 7: 07/30/21 06:47 07/30/21 06:47 <German Perez - Last Filed: 07/30/21 16:01> Subjective I reviewed the documentation as provided by the LAKESHA above, who is the original author of this note. I agree with the documented assessment and plan, with the following changes: None Objective - Vital Signs Vital signs: Vital Signs Temp 98.0 F 07/30/21 14:11 Pulse 71 07/30/21 14:11 Resp 16 07/30/21 14:11 BP 107/70 07/30/21 14:11 Pulse Ox 93 L 07/30/21 14:11 Intake & Output 07/29/21 07/30/21 07/30/21 18:59 06:59 18:59 Intake Total 125 Balance 125 Weight 122.47 kg 122.47 kg Intake: IV 125 Other: Voiding Method Toilet # Voids 1 1 # Bowel Movements 1 - Labs CBC & Chem 7: 07/30/21 06:47 07/30/21 06:47 Labs: Abnormal Lab Results - Last 24 Hours (Table) 07/30/21 07/30/21 Range/Units 06:47 06:47 RBC 4.24 L (4.40-5.60) X 10*6/uL Hgb 12.8 L (13.0-17.0) g/dL Hct 39.0 L (39.6-50.0) % Glucose 117 H (70-110) mg/dL AST 9 L (14-35) U/L
[2021-07-30 14:12] VITALS: RESP 16
[2021-07-30] MEDS ORDERED: HEPARIN SODIUM 1,000 UN/ML (10ML VL) ONE (16:20)
[2021-07-30] MEDS ORDERED: LIDOCAINE 1% INJ 10MG/ML (20 ML MDV) ONE (16:20)
[2021-07-30] MEDS ORDERED: VERAPAMIL 2.5 MG/ML 2 ML AMP ONE (16:20)
[2021-07-30] MEDS ORDERED: fentaNYL (PF) 50 MCG/ML 2 ML AMP ONE (16:38)
[2021-07-30] MEDS ORDERED: MIDAZOLAM 2 MG/2 ML VIAL IV ONE (17:22)
[2021-07-30] MEDS ORDERED: fentaNYL (PF) 50 MCG/ML 2 ML AMP IV ONE (17:25)
[2021-07-30] MEDS ORDERED: LIDOCAINE 1% INJ 10MG/ML (20 ML MDV) SQ ONE (17:26)
[2021-07-30] MEDS ORDERED: VERAPAMIL SYRINGE (5 MG/10 ML) INTRAARTER ONE ×2 (17:27→17:38)
[2021-07-30] MEDS ORDERED: HEPARIN SODIUM 1,000 UN/ML (10ML VL) IV ONE (17:29)
[2021-07-30] MEDS ORDERED: IOPAMIDOL-370 125ML BTL INJ ONE (17:40)
[2021-07-30] MEDS ORDERED: RX INFO: IV CONTRAST WAS GIVEN 1 EACH MISC MISCELLANE PRN (17:43)
[2021-07-30] MEDS ORDERED: SODIUM CHLORIDE 0.9% 1,000 ML IV SCH (17:45)
--- NOTE | 2021-07-30 17:46 | P.PCN ---
Date of Procedure: 07/30/21 Operative Findings: CARDIAC CATHETERIZATION PERFORMING PHYSICIAN: Manuel Kessler MD, RPVI PROCEDURE PERFORMED: 1. Selective right and left coronary angiogram 2. Left heart catheterization INDICATION: Chest discomfort in this 56-year-old gentleman who presented to the hospital and was ruled out for acute coronary syndrome. He underwent myocardial perfusion imaging stress is and that revealed reversibility. In the light of.heart catheterization was advised COMPLICATION: None APPROACH: Right radial artery LEVEL OF SEDATION: Moderate with a sedation length of 13 minutes PROCEDURE DESCRIPTION: After obtaining an informed consent, the patient was brought to cardiac agricultural labor camp manager. Local anesthesia was performed using lidocaine subcutaneously. The right radial artery was cannulated using Seldinger technique, the guidewire passed easily, following that we advanced a 5-Croatian sheath dilator assembly, the wire and dilator were removed and sheath was flushed. Following that, 2 mg of verapamil along with 5000 unit heparin were given. Selective right and left coronary angiogram using a 6-Croatian JR4 and JL 3.5 catheters. Following that we did left heart catheterization using 6-Croatian pigtail catheter. The procedure was completed there was no complication. SELECTIVE CORONARY ANGIOGRAM: The right coronary artery: Is a large caliber vessel and a dominant vessel. The RCA is angiographically normal. Distally bifurcates into PDA and PLV branches both appears to be angiographically normal Left main: Is a large caliber vessel. Its angiographically normal. Bifurcates into LCx and LAD The left circumflex: Is a large caliber vessel nondominant vessel. The left circumflex system is normal and gives rises into 3 obtuse marginal branches and all appeared to be angiographically normal. The left anterior descending artery: Is a large caliber vessel. Its angiographically normal. It gives rises into a large diagonal branch which seems to be angiographically normal HEMODYNAMICS: And the LVEDP was about 10 mmHg without significant gradient across aortic valve CONCLUSION: 1. Normal coronary angiogram 2. Normal left-sided filling pressure POSTPROCEDURE MANAGEMENT: Medical treatment and follow-up with the patient
[2021-07-30] MEDS: MULTIVITAMINS, THERA 1 EACH TAB PO SCH (20:28)
[2021-07-30] MEDS: LORazepam 1 MG TAB PO SCH (20:28)
[2021-07-30] MEDS: ATORVASTATIN 20 MG TAB PO SCH (20:28)
[2021-07-30] MEDS: METOPROLOL SUCCINATE (ER) 50 MG TAB.ER.24H PO SCH (20:28)
[2021-07-30] MEDS: CITALOPRAM HYDROBROMIDE 20 MG TAB PO SCH (20:28)
[2021-07-30] MEDS: PANTOPRAZOLE 40 MG TABLET PO SCH (20:29)
[2021-07-31] MEDS: NITROGLYCERIN OINT 1 INCH/GM PACKET TOPICAL SCH (06:10)
[2021-07-31 07:23] VITALS: BP 125/72; TEMP 97.8
[2021-07-31] MEDS: SACUBITRIL/VALSARTAN 24 MG-26 MG TABLET PO SCH (08:07)
[2021-07-31] MEDS: SPIRONOLACTONE 25 MG TAB PO SCH (08:07)
[2021-07-31] MEDS: HEPARIN SODIUM,PORCINE/PF 5,000 UNIT/0.5 ML SYRINGE SQ SCH (08:07)
[2021-07-31] MEDS: ASPIRIN 81 MG PO SCH (08:08)
[2021-07-31 08:27] LABS: African American GFR (CKD) >90 (>60 ml/min/1.73 sqM); Anion Gap 4 mmol/L; Blood Urea Nitrogen 17 mg/dL (9-20); Calcium 8.6 mg/dL (8.4-10.2); Carbon Dioxide 28 mmol/L (22-30); Chloride 106 mmol/L (98-107); Glucose 103 mg/dL (74-99); Non-African American GFR(CKD) >90 (>60 ml/min/1.73 sqM); Sodium 138 mmol/L (137-145)
[2021-07-31 09:00] VITALS: PULSE 64
--- NOTE | 2021-07-31 15:28 | P.PN ---
Subjective Progress Note Date: 07/31/21 The patient is interviewed and examined resting comfortably in bed. He states he feels well after his coronary angiogram yesterday. It revealed normal coronary arteries. He denies any more chest pain or chest pressure. No difficulty breathing overnight. Heart racing or fluttering. No dizziness GENERAL: Well-appearing, well-nourished and in no acute distress. NECK: Supple without JVD or thyromegaly. LUNGS: Breath sounds clear to auscultation bilaterally. Respiration equal and unlabored. No wheezes, rales or rhonchi. HEART: Regular rate and rhythm without murmurs, rubs or gallops. S1 and S2 hea rd. EXTREMITIES: Normal range of motion, no edema. No clubbing or cyanosis. Peripheral pulses intact and strong. VITALS: Blood pressure 125/72, pulse 59, temp 97.8F, respiratory rate 16, SpO2 93% TELEMETRY: Sinus mechanism LABS: Sodium 138, potassium 4.0, BUN 17, creatinine 0.90 IMPRESSION: Chest pain, resolved Abnormal stress test, followed by normal coronary angiogram Dyslipidemia, on statin Hypertension, well controlled PLAN: May be discharged from the cardiac standpoint Follow-up in office with Dr. Kessler in 1-2 weeks I am dictating on behalf of Dr Enoch Noble's history/physical and assessment/plan. Objective - Vital Signs Vital signs: Vital Signs Temp 97.8 F 07/31/21 07:00 Pulse 59 L 07/31/21 07:00 Resp 16 07/31/21 07:00 BP 125/72 07/31/21 07:00 Pulse Ox 93 L 07/31/21 07:00 Intake & Output 07/30/21 07/31/21 07/31/21 18:59 06:59 18:59 Intake Total 225 300 Balance 225 300 Weight 122.47 kg Intake: IV 225 Oral 300 Other: Voiding Method Toilet # Voids 2 - Labs CBC & Chem 7: 07/30/21 06:47 07/31/21 07:26 Labs: Abnormal Lab Results - Last 24 Hours (Table) 07/30/21 07/30/21 Range/Units 06:47 06:47 RBC 4.24 L (4.40-5.60) X 10*6/uL Hgb 12.8 L (13.0-17.0) g/dL Hct 39.0 L (39.6-50.0) % Glucose 117 H (70-110) mg/dL AST 9 L (14-35) U/L
--- NOTE | 2021-07-31 16:07 | P.DS ---
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 In the emergency department he underwent an extensive evlauaiton. EKG demonstrated normal sinus rhythm at 67 bpm with a left bundle branch block. Chest x-ray revealing mild bibasilar infiltrate suggestive of atelectasis. Labs obtained with CBC unremarkable, coags unremarkable, CMP unremarkable, magnesium normal findings and troponin negative at less than 0.012. Patient was placed in observation. Cardiology was consulted. He underwent a Lexiscan stress test which showed decreased perfusion in the cardiac apex. He subsequently underwent a cardiac catheterization which showed normal coronaries. He did well was determined stable for discharge home. Follow-up: Dr. Jamil, Dr. Kessler. No medication changes have been made during this hospital stay. Patient seen and examined at bedside. Currently chest pain-free, no nausea or vomiting. We discussed that he needs to be worked up for other causes of chest pain including GERD, possible gallbladder disease, or anxiety. Patient is aware that he needs to follow-up with his PCP: Vital signs reviewed and stable. General: non toxic, no distress, appears at stated age Derm: warm, dry Head: atraumatic, normocephalic, symmetric Eyes: EOMI, no lid lag, anicteric sclera Mouth: no lip lesion, mucus membranes moist Cardiovascular: S1S2 reg, no murmur, positive posterior tibial pulse bilateral, Lungs: CTA bilateral, no rhonchi, no rales , no accessory muscle use Abdominal: soft, nontender to palpation, no guarding, no appreciable organomegaly Ext: no gross muscle atrophy, no edema, no contractures Neuro: CN II-XI grossly intact, no focal neuro deficits Psych: Alert, oriented, appropriate affect A total of 35 minutes of time were spent preparing this complex discharge summary . Patient Condition at Discharge: Stable Plan - Discharge Summary Discharge Rx Participant: No New Discharge Prescriptions: New Aspirin 81 mg PO DAILY Continue Omeprazole [PriLOSEC] 20 mg PO HS Multivitamins, Thera [Multivitamin (formulary)] 1 tab PO HS Sacubitril/Valsartan [Entresto 24 mg-26 mg Tablet] 1 tab PO BID LORazepam [Ativan] 2 mg PO HS Calcium Polycarbophil [Fibercon] 625 mg PO TID Spironolactone [Aldactone] 25 mg PO DAILY Simvastatin [Zocor] 40 mg PO HS Metoprolol Succinate (ER) [Toprol XL] 50 mg PO HS Citalopram Hydrobromide 40 mg PO HS Discharge Medication List Omeprazole [PriLOSEC] 20 mg PO HS 10/14/14 [History] Calcium Polycarbophil [Fibercon] 625 mg PO TID 07/29/21 [History] Citalopram Hydrobromide 40 mg PO HS 07/29/21 [History] LORazepam [Ativan] 2 mg PO HS 07/29/21 [History] Metoprolol Succinate (ER) [Toprol XL] 50 mg PO HS 07/29/21 [History] Multivitamins, Thera [Multivitamin (formulary)] 1 tab PO HS 07/29/21 [History] Sacubitril/Valsartan [Entresto 24 mg-26 mg Tablet] 1 tab PO BID 07/29/21 [History] Simvastatin [Zocor] 40 mg PO HS 07/29/21 [History] Spironolactone [Aldactone] 25 mg PO DAILY 07/29/21 [History] Aspirin 81 mg PO DAILY 07/31/21 [Rx] Follow up Appointment(s)/Referral(s): Manuel Kessler MD [STAFF PHYSICIAN] - 2 Weeks Mari Jamil MD [Primary Care Provider] - 1-2 days (has appointment on 08/04/21) Patient Instructions/Handouts: Heart Healthy Diet (ED), After Radial Heart Catheterization (GEN), Left Heart Catheterization (DC) Activity/Diet/Wound Care/Special Instructions: Activity: As tolerated Diet: Heart healthy Special Instructions: Keep your standing appointment with Dr. Jamil No driving for two days Ok to shower tomorrow but no baths, pools, lakes, doing dishes by hand for five days. Signs of infection IE: fever, rash, drainage from puncture site, swelling go to ER/doctor for immediate evaluation. Avoid using right wrist/hand to bend, flex, lift greater than 5 lbs for five days. For Heavy Bleeding of puncture site apply firm direct pressure and return to ER. Do not attempt to drive self. Discharge Disposition: HOME SELF-CARE
== END 2021-07-31 11:25 | disposition home or self-care (01) | DRG 287 ==
LOC: EC 07:28 → 6NMEDSUR 09:56 → OBSVTOIN 07-30 12:05 → UNDODISOB 07-31 11:25
PROVIDERS: ADMIT Internal Medicine; ATTEND Internal Medicine
DX: R07.89 Other chest pain (principal); I42.8 Other cardiomyopathies; I47.1 Supraventricular tachycardia; I50.22 Chronic systolic (congestive) heart failure; I11.0 Hypertensive heart disease with heart failure; E66.01 Morbid (severe) obesity due to excess calories; I44.7 Left bundle-branch block, unspecified; K21.9 Gastro-esophageal reflux disease without esophagitis; K44.9 Diaphragmatic hernia without obstruction or gangrene; E78.5 Hyperlipidemia, unspecified; Z68.37 Body mass index [BMI] 37.0-37.9, adult; R19.7 Diarrhea, unspecified; Z79.899 Other long term (current) drug therapy; Z87.438 Personal history of other diseases of male genital organs; Z87.01 Personal history of pneumonia (recurrent); Z87.891 Personal history of nicotine dependence; Z98.890 Other specified postprocedural states; Z80.3 Family history of malignant neoplasm of breast; Z82.49 Family history of ischemic heart disease and other diseases of the circulatory system; Z80.8 Family history of malignant neoplasm of other organs or systems
CPT/HCPCS: 36415; 71046; 78452; 80048; 80053; 80061; 83735; 84484; 85025; 85027; 85379; 85610; 85730; 93005; 93017; 93306; 93458; 99285

== ENCOUNTER → 2024-04-04 | Outpatient (CLI) | payer MEDICARE ==
--- NOTE | 2024-04-04 21:44 | US ---
EXAMINATION TYPE: US scrotum with doppler. DATE OF EXAM: 04/04/2024 COMPARISON: NONE CLINICAL INDICATION: Male, 59 years old with history of N50.811 N50.812 TESTICULAR PAIN; Pt states le ft testicle has felt achy for many years TECHNIQUE: Grayscale, color Doppler and spectral Doppler imaging of the scrotum. FINDINGS: EXAM MEASUREMENTS: TESTICLES: Right Testicle: 3.9 x 2.3 x 3.0 cm Left Testicle: 3.6 x 2.2 x 2.6 cm EPIDIDYMIS HEAD: Right Epididymis: 1.2 cm Cystic area epi head= 1.0 x 0.8 x 1.1 cm Left Epididymis: 1.1 cm Doppler performed to assess for testicular vascularity; good bilateral color flow and spectral wavefo anna are seen. There is no evidence of testicular torsion. Presence of hydroceles: No Presence of varicoceles: Dilated veins within left testicle- and also extending lateral to left test icle in area of pt's pain, increased blood flow upon valsalva IMPRESSION: 1. Enlarged testicular veins and varicoceles in the left hemiscrotum. 2. Right epididymal cyst [facility], , 04/04/2024 9:41 PM
== END | disposition home or self-care (01) ==
LOC: RADUSWWP 10:20
PROVIDERS: ATTEND Family Medicine
DX: I86.1 Scrotal varices (principal); N50.3 Cyst of epididymis; N44.8 Other noninflammatory disorders of the testis
CPT/HCPCS: 76870; 93975

== ENCOUNTER → 2024-05-10 | Day surgery (SDC) | payer MEDICARE, OTHER ==
[2024-05-09 11:43] VITALS: BMI 36.2
[~2024-05-10] MED LIST: PROPOFOL 10 MG/ML 20 ML VIAL IV ONE
[2024-05-10] MEDS: IV FLUID CONTINUATION 1,000 ML IV ONE (08:26)
[2024-05-10 08:34] VITALS: TEMP 97
[2024-05-10] MEDS: LACTATED RINGERS 1,000 ML IV SCH (08:39)
--- NOTE | 2024-05-10 09:33 | P.PCN ---
Date of Procedure: 05/10/24 Procedure(s) Performed: BRIEF HISTORY: Patient is a 59-year-old pleasant white male scheduled for an elective colonoscopy as a part of screening for colon cancer/positive Cologuard PROCEDURE PERFORMED: Colonoscopy with biopsy. PREOPERATIVE DIAGNOSIS: Screening for colon cancer/positive Cologuard. IV sedation per Anesthesia. PROCEDURE: After informed consent was obtained, the patient, was brought into the endoscopy unit. IV sedation was administered by Anesthesia under continuous monitoring. Digital rectal examination was normal. Initially the Olympus CF-160 flexible video colonoscope was then inserted in the rectum, gradually advanced into the cecum without any difficulty. Careful examination was performed as the scope was gradually being withdrawn. Ileocecal valve and the appendiceal orifice were visualized and appeared normal. Prep was excellent. Mucosa of the cecum, ascending colon, appeared normal. The transverse colon there was a 5 mm sessile polyp removed by cold snare polypectomy. Rest of the transverse colon, descending colon, sigmoid colon, and rectum appeared normal left-sided diverticulosis seen.. Retroflexion was performed in the rectum and no lesions were seen. The patient tolerated the procedure well. IMPRESSION: 5 mm transverse colon polyp status post cold snare polypectomy Scattered sigmoid diverticulosis RECOMMENDATIONS: Findings of this examination were discussed with the patient as well as her family. He was advised to follow-up with the biopsy results. If the biopsy reveals adenoma he can have repeat colonoscopy in 5 years..
[2024-05-10 09:39] VITALS: RESP 16
[2024-05-10 09:52] VITALS: BP 120/74; PULSE 62
== END ==
LOC: ORWHC2ENDO 08:07
PROVIDERS: ATTEND Internal Medicine Gastroenterology
DX: Z12.11 Encounter for screening for malignant neoplasm of colon (principal); D12.3 Benign neoplasm of transverse colon; K57.30 Diverticulosis of large intestine without perforation or abscess without bleeding; R19.5 Other fecal abnormalities; I10 Essential (primary) hypertension; K21.9 Gastro-esophageal reflux disease without esophagitis; E78.5 Hyperlipidemia, unspecified; I42.9 Cardiomyopathy, unspecified; Z85.828 Personal history of other malignant neoplasm of skin; Z79.899 Other long term (current) drug therapy; Z79.82 Long term (current) use of aspirin
CPT/HCPCS: 45385; J2704; 88305